=== PATIENT | female | born 1945 | race African-American/Black ===

== ENCOUNTER 2016-09-29 09:01 | Emergency (ER) | payer OTHER, MEDICAID ==
[~2016-09-29] VITALS: Ht 162.6 cm; Wt 95.0 kg
[2016-09-29] MEDS ORDERED: PREDNISONE 20MG TABLET PO ONE (09:30)
[2016-09-29] MEDS ORDERED: CLONIDINE 0.1MG TABLET PO ONE (09:30)
[2016-09-29 10:04] VITALS: BP 179/98
== END 2016-09-29 10:06 | disposition home or self-care (01) ==
LOC: ER 09:01
DX: R21 Rash and other nonspecific skin eruption (principal); E66.9 Obesity, unspecified; I16.0 Hypertensive urgency; I10 Essential (primary) hypertension
CPT/HCPCS: 99283; J7512

== ENCOUNTER 2016-10-12 09:22 | Emergency (ER) | payer OTHER, MEDICAID ==
[~2016-10-12] VITALS: Ht 167.6 cm; Wt 94.0 kg
[2016-10-12] MEDS ORDERED: DIPHENHYDRAMINE 50MG/ML VIAL IM ONE (10:00)
[2016-10-12 10:21] LABS: BASOPHILS % 0.6 % (0.0-2.0); EOSINOPHILS % 4.5 % (0.0-5.0); HEMATOCRIT. 37.5 % (36.0-48.0); HEMOGLOBIN. 12.8 g/dL (12.0-16.0); LYMPHOCYTES % 20.9 % (20.0-50.0); MEAN CORPUSCULAR HEMOGLOBIN 30.5 pg (28.0-32.0); MEAN CORPUSCULAR VOLUME 89.7 fL (81.0-99.0); MEAN PLATELET VOLUME 8.9 fl (7.4-10.4); MONOCYTES % 9.3 % (2.0-8.0); NEUTROPHILS % 64.7 % (40.0-76.0); PLATELET 235 x1000/uL (130-400); RED BLOOD CELL COUNT 4.18 mill/uL (4.2-5.4); RED CELL DISTRIBUTION WIDTH 12.6 % (11.6-14.6)
[2016-10-12 10:32] LABS: CARBON DIOXIDE 27 mEq/L (21-32); CHLORIDE 98 mEq/L (98-107)
[2016-10-12 10:39] LABS: TROPONIN I < 0.02 ng/mL (0.00-0.04)
[2016-10-12 11:39] VITALS: BP 155/87
== END 2016-10-12 11:42 | disposition home or self-care (01) ==
LOC: ER 09:48
DX: L30.9 Dermatitis, unspecified (principal); R73.9 Hyperglycemia, unspecified; R06.02 Shortness of breath; I10 Essential (primary) hypertension; Z87.891 Personal history of nicotine dependence
CPT/HCPCS: 36415; 71010; 80053; 83880; 84484; 85025; 93005; 96372; 99285; J1200